=== PATIENT | female | born 1995 | race Caucasian/White ===

== ENCOUNTER 2019-08-11 18:28 | Emergency (ER) | payer OTHER ==
[~2019-08-11] VITALS: Ht 165.1 cm; Wt 62.6 kg
[2019-08-11 19:04] VITALS: BP 133/93
--- NOTE | 2019-08-11 19:20 | NUR ---
PT TAKEN TO CHAIR C
--- NOTE | 2019-08-11 19:30 | NUR ---
PALAK MCLAUGHLIN EVALUATING PT IN CHAIR C.
[2019-08-11] MEDS ORDERED: BACITRACIN OINT 500 UNITS/GM PKT TP ONE (19:35)
[2019-08-11] MEDS ORDERED: ACETAMINOPHEN EXTRA STRENGTH 500 MG TAB PO ONE (19:35)
--- NOTE | 2019-08-11 19:35 | NUR ---
23 YO F BIB SELF PRESENTS TO ED WITH LARGE LINEAR ABRASION TO RIGHT RIBCAGE RADIATING DOWN RIGHT FLANK WITH AVULSION TAIL END OF ABRASION S/P FALLING OFF CHAIN LINK FENCE. SANGUINEOUS DRAINAGE NOTED. WOUND HAS BEEN CLEANED; DRESSED WITH LARGE GAUZE PAD. PT STATES SHE DOESN'T KNOW WHEN HER LAST TETANUS WAS. DENIES HITTING HEAD OR LOC. NO OTHER OBVIOUS TRAUMA NOTED. -- PT AWAKE, A/O X 4, CALM, COOPERATIVE. ANSWERS QUESTIONS APPROPRIATELY. BEHAVIOR AGE APPROPRIATE. -- SKIN PINK, WARM, DRY. BREATHING EVEN, UNLABORED. PMH-- DENIES RX-- DENIES
[2019-08-11] MEDS ORDERED: NEOMYCIN/POLYMYXIN/BACITRACIN 0.9 GM/1 PKT TP ONE (19:39)
--- NOTE | 2019-08-11 19:52 | NUR ---
EMT PERFORMING WOUND CARE AT CHAIR.
[2019-08-11 20:09] VITALS: BP 133/93
--- NOTE | 2019-08-11 20:09 | NUR ---
Patient discharged with v/s stable. Written and verbal after care instructions given and explained. Patient alert, oriented and verbalized understanding of instructions. Ambulatory with steady gait. All questions addressed prior to discharge. ID band removed. Patient advised to follow up with PMD. Rx of Tylenol Extra Strength and Bacitracin given. Patient educated on indication of medication including possible reaction and side effects. Opportunity to ask questions provided and answered.
== END 2019-08-11 20:09 | disposition home or self-care (01) ==
LOC: MED 18:28
DX: S30.811A Abrasion of abdominal wall, initial encounter (principal); W18.39XA Other fall on same level, initial encounter; Y92.89 Other specified places as the place of occurrence of the external cause; Y93.39 Activity, other involving climbing, rappelling and jumping off; Y99.8 Other external cause status
CPT/HCPCS: 90471; 90715; 99283